=== PATIENT | male | born 1980 | race Two or more races ===

== ENCOUNTER 2019-06-10 22:30 | Emergency (ER) | payer MEDICAID ==
[~2019-06-10] VITALS: Ht 170.2 cm; Wt 88.6 kg
[~2019-06-10 22:30] MED LIST: NOCURR
[2019-06-10 22:31] VITALS: BP 144/97
[2019-06-10] MEDS ORDERED: PHEN-748 PO (22:34)
== END 2019-06-10 23:15 | disposition left against medical advice (07) ==
LOC: EMS 22:30
DX: R10.9 Unspecified abdominal pain (principal); Z53.21 Procedure and treatment not carried out due to patient leaving prior to being seen by health care provider

== ENCOUNTER 2019-08-24 00:53 | Emergency (ER) | payer MEDICAID ==
[~2019-08-24] VITALS: Ht 182.9 cm; Wt 85.0 kg
[~2019-08-24 00:53] MED LIST changes: +PHEN-748 PO
[2019-08-24 01:01] VITALS: BP 114/73
== END 2019-08-24 01:05 | disposition short-term general hospital (02) ==
LOC: EMS 00:53
DX: S31.113A Laceration without foreign body of abdominal wall, right lower quadrant without penetration into peritoneal cavity, initial encounter (principal); S00.03XA Contusion of scalp, initial encounter; F17.210 Nicotine dependence, cigarettes, uncomplicated; Y04.2XXA Assault by strike against or bumped into by another person, initial encounter; Y93.89 Activity, other specified; Y92.89 Other specified places as the place of occurrence of the external cause; Y99.8 Other external cause status
CPT/HCPCS: 99291